=== PATIENT | male | born 1965 | race Caucasian/White ===

== ENCOUNTER 2017-01-22 10:06 | Emergency (ER) | payer OTHER ==
[2017-01-22 10:58] LABS: BASO % 0.3 % (0.2-1.2); EOS # 0.3 10_X3_uL (0.0-0.5); EOS % 2.1 % (0.8-7.0); GRAN # 9.1 10_X3_uL (1.8-5.4); GRAN % 76.2 % (34.0-67.9); HEMATOCRIT 39.4 % (40-51); HEMOGLOBIN 13.3 g/dL (13.7-17.5); LYMPH # 1.8 10_X3_uL (1.3-3.6); LYMPH % 15.1 % (21.8-53.1); MEAN CORPUSCULAR HEMOGLOBIN 30.2 pg (27.0-33.0); MEAN CORPUSCULAR HGB CONC 33.8 g/dL (32.0-36.0); MEAN CORPUSCULAR VOLUME 89.3 fL (79-92); MEAN PLATELET VOLUME 12.2 fl (7.5-11.5); MONO # 0.8 10_X3_uL (0.3-0.8); MONO % 6.3 % (5.3-12.2); PLATELET COUNT 195 x10_3/uL (163-337); RED BLOOD COUNT 4.41 x10_6/uL (4.6-6.1); RED CELL DISTRIBUTION WIDTH 13.7 % (11.6-14.4)
== END 2017-01-22 11:19 | disposition home or self-care (01) ==
LOC: ER 10:06
PROVIDERS: General Practice
DX: M25.552 Pain in left hip (principal); G89.29 Other chronic pain; I73.9 Peripheral vascular disease, unspecified; E66.01 Morbid (severe) obesity due to excess calories; I10 Essential (primary) hypertension; K21.9 Gastro-esophageal reflux disease without esophagitis; Z79.899 Other long term (current) drug therapy; Z79.82 Long term (current) use of aspirin; Z79.84 Long term (current) use of oral hypoglycemic drugs; Z88.8 Allergy status to other drugs, medicaments and biological substances; Z88.5 Allergy status to narcotic agent
CPT/HCPCS: 36415; 73501; 85025; 96372; 99283-25